=== PATIENT | female | born 1970 | race Caucasian/White ===

== ENCOUNTER 2024-01-01 10:21 | Outpatient (AMB) | payer OTHER, SELFPAY ==
--- NOTE | 2024-01-01 10:32 | HO.SPINEOV ---
Intake Visit Reasons: lumbar stenosis Intake Note: Mr. Peters is here today c/o low back pain. Bombsight Specialist Required: No Assessment & Plan Assessment & Plan (1) Lumbar spine scoliosis: Code(s): M41.9 - Scoliosis, unspecified Category: Medical Qualifiers: Scoliosis type: idiopathic Plan: Dear colleague Thank you for referring Eli Peters to the office today with a chief complaint of right-sided back pain. HPI: This 53-year-old female is suffering from predominantly right-sided back pain. She was previously seen in the office in 2020 and was offered a right L4 foraminotomy for severe L4 foraminal stenosis. She has decided to hold off. She returns to my office stating that the pain is further progressing. She can not sit for prolonged period of times where stand. Best is to constant change positions. The symptom is significantly interfering with her daily activities and she is looking for more permanent solution. In the past there was more radiating pain towards the leg but this has greatly improved. 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 Nonsmoker. Physical Exam: Pleasant female. There is a mild lumbar degenerative scoliosis on inspection. There are no deficits for motor sensation or reflexes. Radiological Studies: MRI done at [facility] on 11/27/2023 shows severe right L4 neuroforaminal stenosis. A scoliosis series and dynamic lumbar x-ray show very mild lumbar scoliosis at no instability. Impression/Plan: This patient is suffering from predominantly right back pain with originally more a radicular component. I explained to the patient that I would perform a L4 foraminotomy to decompress the L4 nerve root as she did have radiculopathy in the past and these right-sided back pain may still be a residual from nerve compression. I also explained to her that if this does not resolve her symptoms that I do not have any other form of interventions. She will let my office know if she wants to proceed. Thank you for allowing me to participate in your patients care. total time spent was 50 minutes in counseling ,coordination of plan, personal review of imaging, surgical decision making and subsequent plan Dimitry Desir MD, PhD Spine Fellowship Trained Neurosurgeon Director, [facility] Orders: Orders XR scoliosis survey Today M41.9 - Scoliosis, unspecified XR lumbar spine 2-3V Today M41.9 - Scoliosis, unspecified Coding Level of Care Code New Pt Level 4 (39315) Diagnoses Lumbar spine scoliosis M41.9 Scoliosis type: idiopathic
== END 2024-01-01 12:32 | disposition home or self-care (01) ==
PROVIDERS: PCP Family Medicine; Visit Provider Neurological Surgery
DX: M41.9 Scoliosis, unspecified (principal)
CPT/HCPCS: 99204

== ENCOUNTER 2024-01-01 10:21 | Outpatient (REF) | payer OTHER, SELFPAY ==
--- NOTE | ~2024-01-01 | XR_ITS ---
EXAMINATION: XR SCOLIOSIS CLINICAL INFORMATION: M41.9 - Scoliosis, unspecified COMPARISON: None available. TECHNIQUE: A single view of the thoracolumbar spine is obtained. FINDINGS: Submitted for interpretation on March 14, 2024. Rebel type III sacralization. Dextroconvex curvature of the lumbar spine apex at L3-4. Multilevel thoracolumbar spondylosis. No lytic or blastic lesions. There is a 9 degree Hale's angle. XR/XR scoliosis survey IMPRESSION: Dextroconvex rotoscoliosis, lumbar spine, mild. Electronically signed by: Zak Grimes MD 03/14/2024 11:35 AM [facility]
--- NOTE | ~2024-01-01 | XR_ITS ---
EXAMINATION: XR LUMBOSACRAL SPINE CLINICAL INFORMATION: M41.9 - Scoliosis, unspecified COMPARISON: None available. TECHNIQUE: AP and lateral views of the lumbar spine were obtained. Lateral views were obtained in flexion, extension, and neutral positions. FINDINGS: Normal bone mineralization. No fracture, dislocation, or evidence of subluxation. No compression deformities. Transitional lumbosacral anatomy noted with 6 nonrib-bearing vertebral bodies. For the purposes of this report, the last fully formed vertebral body will be termed L5. If intervention is considered, confirmation of levels is highly recommended. There is a mild right convex scoliosis, apex at L2. Normal lordosis. No subluxations. Flexion and extension views demonstrate no developing subluxations. Severe degenerative disc changes are present at L4-5 and L5-S1, at the transitional level. XR/XR lumbar spine 2-3V IMPRESSION: 1. Transitional lumbosacral anatomy as detailed. 2. Focal degenerative disc disease present at L4-5 and L5-S1, at the transitional level. 3. Mild dextroconvex scoliosis. No evidence of instability. 4. No acute bony abnormalities. Electronically signed by: Shiraz Wolfe MD 03/13/2024 09:[address] [facility]
== END 2024-01-01 10:22 | disposition home or self-care (01) ==
LOC: HO.XRAY 10:21
PROVIDERS: PCP Family Medicine; Visit Provider Neurological Surgery
DX: M41.9 Scoliosis, unspecified (principal)
CPT/HCPCS: 72082; 72100

== ENCOUNTER → 2024-01-01 11:28 | Outpatient (BNV) | payer OTHER, SELFPAY | PROVIDERS: PCP Family Medicine; Visit Provider Radiology Diagnostic Radiology | DX: M41.9 Scoliosis, unspecified (principal) | CPT/HCPCS: 72081 ==